=== PATIENT | male | born 1945 | race Caucasian/White ===

== ENCOUNTER 2019-04-19 12:46 | Emergency (ER) | payer BC ==
[~2019-04-19] VITALS: Ht 175.3 cm; Wt 131.5 kg
[~2019-04-19 12:46] MED LIST: CODE BLUE PARTICIPANT 1 EA MISC MC ONE; EPINEPHrine PFS 0.1 MG/ML SYR IVP ONE; SODIUM BICARBONATE 8.4% PFS 50 MEQ/50 ML SYR IVP ONE
--- NOTE | 2019-04-19 12:46 | NUR ---
CARDIOPULMONARY ARREST LISETTE SCHAFERP AND LISETTE AVILESP AT BEDSIDE
--- NOTE | 2019-04-19 12:46 | NUR ---
PATIENT BIBA TO BED 10 AT THIS TIME.
--- NOTE | 2019-04-19 12:46 | NUR ---
PT ARRIVED BY [facility] FIRE FULL ARREST. PT WAS FOUND FACE DOWN BY , EMS NOTED MEDICATIONS BOTTLES WERE ON THE FLOOR AROUND THE PATIENT. ONLY KNOWN MEDICATIONS IS LASIX AT THIS TIME. EMS ARRIVED, CPR INITIATED, OPA IN PLACE, RIGHT TO RIGHT LOWER LEG. EMS ARRIVED ON SCENE AND PT WAS IN PEA. PT RECEIVED A TOTAL OF 6 ROUNDS OF EPI PARKING PATROLLER WITH NO CHANGES. PT ARRIVED TO ED, PT ASYSTOLE ON MONITOR, CPR CONTINUED IN ED.
--- NOTE | 2019-04-19 13:00 | NUR ---
TIME OF 1300.
--- NOTE | 2019-04-19 13:08 | NUR ---
CALLED [facility] . RECEIVED .
--- NOTE | 2019-04-19 13:12 | NUR ---
CALLED TREASURY ANALYST: . BEEN NOTIFIED THAT THEY WILL CALL BACK TO NUMBER OF .
--- NOTE | 2019-04-19 15:34 | NUR ---
[place] ON [place] , I SPOKE WITH [facility] WHOM WAS ABLE TO PROVIDE PT'S ADDRESS [id number] [facility] [phone] ; NO ANSWER
--- NOTE | 2019-04-19 15:39 | NUR ---
SPOKE WITH [employer] [place] [employer] [phone]. REQUESTED IF SOMEONE CAN MAKE CONTACT OUT TO PT'S ADDRESS---IF THEY CAN CALL OUR ER OR ARRIVE
--- NOTE | 2019-04-19 15:50 | NUR ---
SPOKE TO DAVION PATRICK OF [facility] AND BEEN NOTIFIED THEY WILL SEND A SPECITY TO THE ER AND EVALUATE PT.
--- NOTE | 2019-04-19 16:11 | NUR ---
- JANIE STANLEY- [phone] STEP SON- LURDES BEEBE: [phone] PT'S STEP SON MADE AWARE OF PATIENT'S EXPIRATION. PT'S STEP SON UNABLE TO CONTACT HIS MOTHER AND WILL GO HOME TO MAKE HIS MOTHER AWARE AND GET UPDATE ON HOME ARRANGEMENTS.
--- NOTE | 2019-04-19 16:14 | NUR ---
PT'S PMD WAS NOTIFIED OF PT S/P FULL ARREST IF WILL SIGN CERTIFICATE. LEFT MESSAGE
--- NOTE | 2019-04-19 17:58 | NUR ---
SPOKE TO KAYY OF [facility] AND PROVIDED PT'S ABD STEP SON'S PHONE NEMBERS.
--- NOTE | 2019-04-19 18:03 | NUR ---
CALLED TO UPDATE STATUS ON PATROL JUDGE'S ETA, PAGE WILL BE SENT OUT TO PATROL JUDGE AND THEY WILL CALL US BACK TO NOTIFY US.
--- NOTE | 2019-04-19 18:26 | NUR ---
Concrete Mixer Operator Deputy [place] called and stated she was taking over case and was coming from [facility].
--- NOTE | 2019-04-19 18:59 | NUR ---
SPOKE TO GREGG GARRISON COMES FROM CLINICAL NURSE REVIEWER. EVALUATE PT AND GATHER PT'S INFORMATION AT BEDSIDE. CLINICAL NURSE REVIEWER RECEIVED.
--- NOTE | 2019-04-19 19:18 | NUR ---
Pt report given to Rodrigo Chavez and Rachelle Ortiz Transfer of care at this time.
--- NOTE | 2019-04-19 19:34 | NUR ---
BODY REMOVED FROM [facility] BY PIZZAMAKER AT THIS TIME.
== END 2019-04-19 13:00 | disposition expired ==
LOC: MED 12:46
DX: I46.9 Cardiac arrest, cause unspecified (principal); I10 Essential (primary) hypertension
CPT/HCPCS: 92950; 92960; 99291; J0171